=== PATIENT | male | born 1930 | race Caucasian/White ===

== ENCOUNTER 2018-03-20 09:58 | Inpatient (IN) | payer MEDICARE ==
[~2018-03-20] VITALS: Ht 175.3 cm; Wt 60.7 kg
[2018-03-20] MEDS ORDERED: SODIUM CHLORIDE 0.9% 1,000 ML IV SCH (14:21)
[2018-03-20 14:22] VITALS: BP 125/70
[2018-03-20] MEDS ORDERED: PLEASE ENTER ALLERGIES MC SCH (14:30)
[2018-03-20] MEDS ORDERED: ENALAPRILAT 1.25 MG/ML, 2ML IVPush PRN (14:30)
[2018-03-20] MEDS ORDERED: ONDANSETRON 2MG/ML, 2ML IVPush PRN (14:30)
[2018-03-20 15:30] LABS: ALANINE AMINOTRANSFERASE 79 U/L (12-78); ANION GAP 7 mmol/L (5-15); CALCIUM 9.1 mg/dL (8.5-10.1); CHLORIDE 104 mmol/L (98-107)
[2018-03-20 15:32] LABS: MD YES; MEAN CORPUSCULAR HEMOGLOBIN 29.5 pg (27.5-34.5); MEAN CORPUSCULAR HGB CONC 34.1 g/dL (33.2-36.2); MEAN CORPUSCULAR VOLUME 86.4 fL (81-97); PLATELET COUNT 309 x10^3/uL (130-400); RED BLOOD COUNT 3.93 x10^6/uL (4.38-5.82); RED CELL DISTRIBUTION WIDTH 22.5 % (9.4-14.8)
[2018-03-20 15:43] LABS: ALKALINE PHOSPHATASE 447 U/L (45-117)
[2018-03-20 15:45] LABS: CREATININE 0.91 mg/dL (0.7-1.3)
[2018-03-20 15:46] LABS: TOTAL PROTEIN 4.8 g/dL (6.4-8.2)
[2018-03-20 15:49] LABS: BILIRUBIN,TOTAL 26.9 mg/dL (0.2-1.0)
[2018-03-20 16:20] LABS: LYMPH#(MANUAL) 1.04 x10^3/uL (1-3.4); LYMPHS% (MANUAL) 26 % (22-44); MONOS#(MANUAL) 0.48 x10^3/uL (0.3-2.7); MONOS% (MANUAL) 12 % (2-9); REACTIVE LYMPHS # (MANUAL) 0.12 x10^3/uL (0-0); REACTIVE LYMPHS % (MANUAL) 3 % (0-0); SEG#(MANUAL) 2.36 x10^3/uL (1.8-6.8); SEGS% (MANUAL) 59 % (42-75)
[2018-03-20 16:23] LABS: <PLATELET ESTIMATE> ADEQUATE; <PLT MORPHOLOGY> NORMAL PLT MORPH; ANISOCYTOSIS 1+
[2018-03-20 16:24] LABS: TARGET CELLS 1+
[2018-03-20 18:49] VITALS: BP 106/68
[2018-03-20] MEDS: SODIUM CHLORIDE FLUSH 10ML SYR IVF SCH (20:00)
[2018-03-20] MEDS ORDERED: GABA-826 PO (20:49)
[2018-03-20] MEDS ORDERED: APIX2.5T PO (20:49)
[2018-03-20] MEDS ORDERED: DULO60CA55 PO (20:49)
[2018-03-20] MEDS ORDERED: CYCL-259 PO (20:49)
[2018-03-20] MEDS ORDERED: CHOL200024 PO (20:49)
[2018-03-20] MEDS ORDERED: OMEP40CA6 PO (20:49)
[2018-03-20] MEDS ORDERED: DEXTROSE 50%, 50ML SYRINGE IVPush PRN (21:00)
[2018-03-20] MEDS ORDERED: GLUCAGON 1 MG IM PRN (21:00)
[2018-03-20] MEDS ORDERED: DEXTROSE 4 GM TAB.CHEW PO PRN (21:00)
[2018-03-20] MEDS: DULOXETINE 20 MG CAPSULE.DR PO SCH (21:30)
[2018-03-20] MEDS ORDERED: DULO20CA17 PO (21:32)
[2018-03-20] MEDS: GABAPENTIN 100 MG CAPSULE PO SCH (21:47)
[2018-03-20] MEDS: DEXTROSE 5% 1,000 ML IV SCH (21:47)
[2018-03-20] MEDS: CYCLOBENZAPRINE 10 MG TABLET PO SCH (21:48)
[2018-03-21 00:45] VITALS: BP 111/63
[2018-03-21 04:54] LABS: MEAN CORPUSCULAR HEMOGLOBIN 30.2 pg (27.5-34.5); MEAN CORPUSCULAR HGB CONC 35.3 g/dL (33.2-36.2); MEAN CORPUSCULAR VOLUME 85.7 fL (81-97); MEAN PLATELET VOLUME 8.5 fL (7.4-10.4); PLATELET COUNT 312 x10^3/uL (130-400); RED CELL DISTRIBUTION WIDTH 22.5 % (9.4-14.8)
[2018-03-21 05:08] LABS: CHLORIDE 103 mmol/L (98-107)
[2018-03-21 05:26] LABS: ALANINE AMINOTRANSFERASE 74 U/L (12-78); ALKALINE PHOSPHATASE 434 U/L (45-117); ANION GAP 8 mmol/L (5-15); CALCIUM 8.4 mg/dL (8.5-10.1); MD YES
[2018-03-21 05:27] LABS: CREATININE 0.88 mg/dL (0.7-1.3); TOTAL PROTEIN 4.6 g/dL (6.4-8.2)
[2018-03-21 05:29] LABS: BAND#(MANUAL) 0.13 x10^3/uL; BANDS%(MANUAL) 3 % (0-7); EOS#(MANUAL) 0.04 x10^3/uL (0.0-0.4); EOS% (MANUAL) 1 % (1-7); LYMPH#(MANUAL) 1.13 x10^3/uL (1-3.4); LYMPHS% (MANUAL) 27 % (22-44); MONOS#(MANUAL) 0.17 x10^3/uL (0.3-2.7); MONOS% (MANUAL) 4 % (2-9); REACTIVE LYMPHS # (MANUAL) 0.04 x10^3/uL (0-0); REACTIVE LYMPHS % (MANUAL) 1 % (0-0); SEG#(MANUAL) 2.69 x10^3/uL (1.8-6.8); SEGS% (MANUAL) 64 % (42-75)
[2018-03-21 05:30] LABS: <PLATELET ESTIMATE> ADEQUATE; <PLT MORPHOLOGY> NORMAL PLT MORPH; ANISOCYTOSIS 1+; HYPOCHROMIA 1+; TARGET CELLS 1+
[2018-03-21 07:00] VITALS: BP 110/71
[2018-03-21] MEDS ORDERED: POTASSIUM CHLORIDE 40 MEQ in SODIUM CHLORIDE 0.9% 500 ML IV ONE (07:00)
[2018-03-21] MEDS: OMEPRAZOLE 20 MG CAPSULE.DR PO SCH (07:30)
[2018-03-21] MEDS: GABAPENTIN 100 MG CAPSULE PO SCH ×3 (07:50→21:14)
[2018-03-21] MEDS: CYCLOBENZAPRINE 10 MG TABLET PO SCH ×2 (07:50→21:14)
[2018-03-21] MEDS: DULOXETINE 20 MG CAPSULE.DR PO SCH ×3 (07:50→21:21)
[2018-03-21] MEDS: CHOLECALCIFEROL 1,000 UNIT TABLET PO SCH (07:50)
[2018-03-21] MEDS: SODIUM CHLORIDE FLUSH 10ML SYR IVF SCH ×2 (07:51→21:13)
[2018-03-21] MEDS ORDERED: FENTANYL PF 100 MCG/2ML ONE (12:08)
[2018-03-21] MEDS ORDERED: PROPOFOL 10 MG/ML, 20ML ONE (14:40)
[2018-03-21 15:40] VITALS: BP 133/65
[2018-03-21] MEDS ORDERED: OMNIPAQUE 350 MG/ML, 100ML BOTTLE ONE (16:00)
[2018-03-21 16:55] LABS: INTERNATIONAL NORMALIZED RATIO 1.06 (0.93-1.1); PROTHROMBIN TIME 10.9 Seconds (9.6-11.5)
[2018-03-21] MEDS: DEXTROSE 5% 1,000 ML IV SCH (17:48)
[2018-03-21 21:00] VITALS: BP 129/76
[2018-03-22 02:06] VITALS: BP 110/70
[2018-03-22] MEDS: DEXTROSE 5% 1,000 ML IV SCH (05:37)
[2018-03-22] MEDS: OMEPRAZOLE 20 MG CAPSULE.DR PO SCH (07:30)
[2018-03-22 07:33] VITALS: BP 117/75
[2018-03-22] MEDS: SODIUM CHLORIDE FLUSH 10ML SYR IVF SCH ×2 (09:00→20:59)
[2018-03-22 09:11] LABS: ALANINE AMINOTRANSFERASE 91 U/L (12-78); ANION GAP 6 mmol/L (5-15); CALCIUM 8.5 mg/dL (8.5-10.1); CHLORIDE 99 mmol/L (98-107)
[2018-03-22 09:22] LABS: ALKALINE PHOSPHATASE 504 U/L (45-117)
[2018-03-22 09:24] LABS: CREATININE 0.74 mg/dL (0.7-1.3)
[2018-03-22 09:26] LABS: BILIRUBIN,TOTAL 25.6 mg/dL (0.2-1.0)
[2018-03-22] MEDS: GABAPENTIN 100 MG CAPSULE PO SCH (09:32)
[2018-03-22] MEDS: CYCLOBENZAPRINE 10 MG TABLET PO SCH (09:32)
[2018-03-22] MEDS: DULOXETINE 20 MG CAPSULE.DR PO SCH (09:32)
[2018-03-22] MEDS: CHOLECALCIFEROL 1,000 UNIT TABLET PO SCH (09:32)
[2018-03-22] MEDS ORDERED: MIDAZOLAM 1 MG/ML, 5ML ONE (12:46)
[2018-03-22] MEDS ORDERED: FENTANYL PF 100 MCG/2ML ONE ×2 (12:46)
[2018-03-22] MEDS ORDERED: FLUMAZENIL 0.1 MG/1 ML, 5ML ONE (12:46)
[2018-03-22] MEDS ORDERED: NALOXONE 1 MG/ML, 2ML ONE ×2 (12:46→13:48)
[2018-03-22] MEDS ORDERED: LIDOCAINE-MPF 2% ,5ML ONE ×2 (12:47)
[2018-03-22] MEDS ORDERED: VISIPAQUE 270 MG/ML, 50ML BOTTLE ONE (13:34)
[2018-03-22] MEDS ORDERED: D5%-0.9% NACL 1,000 ML IV SCH (14:30)
[2018-03-22] MEDS ORDERED: HEPARIN 5,000 UNITS/ML, 1ML IV ONE (14:30)
[2018-03-22] MEDS ORDERED: HEPARIN 25,000 UNITS/500ML PMX 500 ML IV PRN ×2 (14:30)
[2018-03-22] MEDS ORDERED: HEPARIN 5,000 UNITS/ML, 1ML IV PRN (14:30)
[2018-03-22] MEDS ORDERED: ATROPINE OPHTH SOLN 1%, 5ML PO PRN (16:00)
[2018-03-22] MEDS: morphine SULFATE 10 MG/ML, 1ML IVPush PRN (20:59)
[2018-03-23] MEDS: LORazepam 2 MG/ML, 1ML IVPush PRN (05:24)
[2018-03-23] MEDS: morphine SULFATE 10 MG/ML, 1ML IVPush PRN ×3 (12:21→21:07)
[2018-03-23] MEDS: SODIUM CHLORIDE FLUSH 10ML SYR IVF SCH ×2 (12:22→21:00)
[2018-03-24] MEDS: morphine SULFATE 10 MG/ML, 1ML IVPush PRN ×3 (02:22→21:14)
[2018-03-24] MEDS: LORazepam 2 MG/ML, 1ML IVPush PRN ×5 (03:08→23:27)
[2018-03-24] MEDS: SODIUM CHLORIDE FLUSH 10ML SYR IVF SCH ×2 (10:38→21:13)
[2018-03-25] MEDS: LORazepam 2 MG/ML, 1ML IVPush PRN ×2 (00:16→08:41)
[2018-03-25] MEDS: morphine SULFATE 10 MG/ML, 1ML IVPush PRN ×3 (01:57→23:30)
[2018-03-25] MEDS: SODIUM CHLORIDE FLUSH 10ML SYR IVF SCH ×2 (08:41→23:29)
[2018-03-26] MEDS: morphine SULFATE 10 MG/ML, 1ML IVPush PRN ×6 (05:11→23:00)
[2018-03-26] MEDS: LORazepam 2 MG/ML, 1ML IVPush PRN (06:45)
[2018-03-26] MEDS: SODIUM CHLORIDE FLUSH 10ML SYR IVF SCH ×2 (09:00→21:00)
[2018-03-26] MEDS ORDERED: MORPHINE SULFATE 4 MG/ML, 1ML ONE ×3 (18:18→22:57)
[2018-03-27] MEDS ORDERED: MORPHINE SULFATE 4 MG/ML, 1ML ONE ×6 (02:29→21:39)
[2018-03-27] MEDS: morphine SULFATE 10 MG/ML, 1ML IVPush PRN ×6 (02:30→21:42)
[2018-03-27] MEDS: SODIUM CHLORIDE FLUSH 10ML SYR IVF SCH ×2 (08:39→21:00)
[2018-03-27] MEDS: LORazepam 2 MG/ML, 1ML IVPush PRN (13:03)
[2018-03-28] MEDS ORDERED: MORPHINE SULFATE 4 MG/ML, 1ML ONE ×4 (02:58→15:18)
[2018-03-28] MEDS: morphine SULFATE 10 MG/ML, 1ML IVPush PRN ×5 (03:00→20:15)
[2018-03-28] MEDS: SODIUM CHLORIDE FLUSH 10ML SYR IVF SCH ×2 (09:00→20:12)
[2018-03-29] MEDS: morphine SULFATE 10 MG/ML, 1ML IVPush PRN ×3 (02:24→22:15)
[2018-03-29] MEDS: LORazepam 2 MG/ML, 1ML IVPush PRN (08:57)
[2018-03-29] MEDS: SODIUM CHLORIDE FLUSH 10ML SYR IVF SCH ×2 (08:58→22:16)
[2018-03-29] MEDS ORDERED: MORPHINE SULFATE 4 MG/ML, 1ML ONE ×2 (18:51→22:13)
[2018-03-30] MEDS ORDERED: MORPHINE SULFATE 4 MG/ML, 1ML ONE ×2 (01:45→05:14)
[2018-03-30] MEDS: morphine SULFATE 10 MG/ML, 1ML IVPush PRN ×4 (01:48→14:04)
[2018-03-30] MEDS: SODIUM CHLORIDE FLUSH 10ML SYR IVF SCH (09:59)
[2018-03-30] MEDS: LORazepam 2 MG/ML, 1ML IVPush PRN (14:05)
== END 2018-03-30 17:43 | disposition expired | DRG 435 ==
LOC: 4NOR 13:42 → CCU 03-22 14:17 → 3NW 03-22 17:48
PROVIDERS: ADMIT Hospitalist; ATTEND Hospitalist
PROC: 0FPD8DZ Removal of Intraluminal Device from Pancreatic Duct, Via Natural or Artificial Opening Endoscopic (ICD-10-PCS; 2018-03-21)
PROC: BF47ZZZ Ultrasonography of Pancreas (ICD-10-PCS; 2018-03-21)
PROC: BF18YZZ Fluoroscopy of Pancreatic Ducts using Other Contrast (ICD-10-PCS; 2018-03-21)
PROC: 0F7D8DZ Dilation of Pancreatic Duct with Intraluminal Device, Via Natural or Artificial Opening Endoscopic (ICD-10-PCS; principal; 2018-03-21 12:00)
DX: C25.9 Malignant neoplasm of pancreas, unspecified (principal); K83.1 Obstruction of bile duct; R64 Cachexia; Z68.1 Body mass index [BMI] 19.9 or less, adult; K86.9 Disease of pancreas, unspecified; K59.00 Constipation, unspecified; F32.9 Major depressive disorder, single episode, unspecified; H91.90 Unspecified hearing loss, unspecified ear; K21.9 Gastro-esophageal reflux disease without esophagitis; K22.70 Barrett's esophagus without dysplasia; K72.90 Hepatic failure, unspecified without coma; Z51.5 Encounter for palliative care; Z66 Do not resuscitate; Z80.51 Family history of malignant neoplasm of kidney; Z80.7 Family history of other malignant neoplasms of lymphoid, hematopoietic and related tissues; Z85.46 Personal history of malignant neoplasm of prostate; Z86.718 Personal history of other venous thrombosis and embolism; Z87.11 Personal history of peptic ulcer disease; F41.9 Anxiety disorder, unspecified; M19.90 Unspecified osteoarthritis, unspecified site; K57.30 Diverticulosis of large intestine without perforation or abscess without bleeding; K44.9 Diaphragmatic hernia without obstruction or gangrene
CPT/HCPCS: 36415; 47534; 71045; 74177; 80053; 82962; 83690; 85025; 85610; 85730; 86301; 87081; 99156; 99157; 99285; C1894; J2250; J2270; J2704; J3010; J3480; J3490; J7042; J7070; Q9966; Q9967; C1769; C2625; J2060; J2310; J7030; J7040